=== PATIENT | female | born 1965 | race Caucasian/White ===

== ENCOUNTER 2020-03-07 17:40 | Emergency (ER) | payer BC, MEDICAID ==
[~2020-03-07] VITALS: Ht 156 cm; Wt 182.0 kg
--- OUTSIDE RECORDS SUMMARY | 2020-03-07 17:44 | XMS REPORT | Continuity of Care Document ---
Author Organization Unknown Address Unknown Phone Unavailable Allergies There is no data. Medications There is no data. Problems There is no data. Procedures There is no data. Results There is no data. Encounters ACCT No. Visit Date/Time Discharge Status Pt. Type Provider Facility Loc./Unit Complaint [id number] 04/07/2014 14:48:00 014 23:59:59 CLS Outpatient
[2020-03-07] MEDS ORDERED: ADENOSINE 6 MG/2 ML (ADENOCARD) VIAL IV ONE ×4 (17:57→19:15)
--- NOTE | 2020-03-07 18:15 | ED Cardiac General ---
History of Present Illness General Chief Complaint: Cardiac/General Problems Stated Complaint: RAPID HEARTBEAT Source: patient Exam Limitations: no limitations History of Present Illness Date Seen by Provider: March 07, 2020 Time Seen by Provider: 17:57 Initial Comments Patient presents ER by private conveyance with chief complaint about 30 minutes prior to arrival she was at [employer] helping her and the truck and she felt her heart start racing. She started doing vagal maneuvers. She has a known history of Jelly Parkinson White. She denies a history of atrial fibrillation but she is on warfarin, sotalol. She's not having any chest pain or shortness of air. She says in the past she's had taken 6 or 12 mg of Adenocard to get it to go away. Allergies and Home Medications Allergies Coded Allergies: prochlorperazine (Verified Allergy, Unknown, 03/07/20) Patient Home Medication List Home Medication List Reviewed: Yes Review of Systems Review of Systems Constitutional: No chills, No diaphoresis EENTM: No Blurred Vision, No Double Vision Respiratory: Denies Cough, Denies Orthopnea Cardiovascular: See HPI; Denies Chest Pain, Denies Edema, Denies Irregular Heart Rate, Denies Lightheadedness; Palpitations; Denies Syncope Gastrointestinal: Denies Abdomen Distended, Denies Abdominal Pain, Denies Constipated, Denies Diarrhea Genitourinary: Denies Burning, Denies Discharge Musculoskeletal: No back pain, No joint pain Skin: No pruritus, No rash Psychiatric/Neurological: Denies Headache, Denies Numbness All Other Systems Reviewed Negative Unless Noted: Yes Past Uphtlxw-Kbqhjx-Dzqtbk Hx Patient Social History Alcohol Use: Denies Use Recreational Drug Use: No 2nd Hand Smoke Exposure: No Recent Foreign Travel: No Contact w/Someone Who Travel: No Past Medical History Respiratory: No Cardiac: Yes (WPW) Hypertension Genitourinary: No Gastrointestinal: No Musculoskeletal: No Endocrine: No HEENT: No Cancer: No Psychosocial: No Integumentary: No Physical Exam Vital Signs Vital Signs - First Documented 03/07/20 03/07/20 18:00 18:01 Temp 36.6 Pulse 141 Resp 15 B/P (MAP) 118/78 (91) Pulse Ox 96 O2 Delivery Room Air Capillary Refill : Height, Weight, BMI Height: '" Weight: lbs. oz. kg; BMI Method: General Appearance: No Apparent Distress, WD/WN HEENT: PERRL/EOMI, Pharynx Normal, Moist Mucous Membranes Neck: Full Range of Motion, Normal Inspection Respiratory: Lungs Clear, Normal Breath Sounds, No Accessory Muscle Use, No Respiratory Distress Cardiovascular: Regular Rate, Rhythm, No Edema, Normal Peripheral Pulses Gastrointestinal: Normal Bowel Sounds, No Organomegaly, Non Tender, Soft Extremity: Normal Capillary Refill, Normal Inspection, Normal Range of Motion Neurologic/Psychiatric: Alert, Oriented x3, No Motor/Sensory Deficits, Normal Mood/Affect Skin: Normal Color, Warm/Dry Procedures/Interventions Additional Procedures: cardioversion/defib Progress 1804: With EKG monitoring in place 12 leads we push 6 mg and flushed rapidly adenocard. Patient had no electrical effect. Patient verbalized that she could feel the Adenocard. 1807: 12 mg of Adenocard was pushed with a rapid flush which achieved about a 1- 2 second pause followed by prompt resumption of wide-complex, regular tachycardia. 1817: A third dose of Adenocard 12 mg was pushed with no visible effect on the monitor. Patient said she could feel the symptoms. Progress/Results/Core Measures Results/Orders Lab Results Laboratory Tests Test 03/07/20 18:18 Range/Units White Blood Count 5.8 4.3-11.0 10^3/uL Red Blood Count 4.67 4.35-5.85 10^6/uL Hemoglobin 13.5 11.5-16.0 G/DL Hematocrit 40 35-52 % Mean Corpuscular Volume 85 80-99 FL Mean Corpuscular Hemoglobin 29 25-34 PG Mean Corpuscular Hemoglobin Concent 34 32-36 G/DL Red Cell Distribution Width 14.9 H 10.0-14.5 % Platelet Count 123 L 130-400 10^3/uL Mean Platelet Volume 9.9 7.4-10.4 FL Neutrophils (%) (Auto) 47 42-75 % Lymphocytes (%) (Auto) 30 12-44 % Monocytes (%) (Auto) 16 H 0-12 % Eosinophils (%) (Auto) 3 0-10 % Basophils (%) (Auto) 4 0-10 % Neutrophils # (Auto) 2.7 1.8-7.8 X 10^3 Lymphocytes # (Auto) 1.7 1.0-4.0 X 10^3 Monocytes # (Auto) 0.9 0.0-1.0 X 10^3 Eosinophils # (Auto) 0.2 0.0-0.3 10^3/uL Basophils # (Auto) 0.3 H 0.0-0.1 10^3/uL Prothrombin Time 17.4 H 12.2-14.7 SEC INR Comment 1.4 0.8-1.4 Activated Partial Thromboplast Time 33 24-35 SEC Sodium Level 138 135-145 MMOL/L Potassium Level 4.1 3.6-5.0 MMOL/L Chloride Level 108 H 98-107 MMOL/L Carbon Dioxide Level 19 L 21-32 MMOL/L Anion Gap 11 5-14 MMOL/L Blood Urea Nitrogen 9 7-18 MG/DL Creatinine 0.70 0.60-1.30 MG/DL Estimat Glomerular Filtration Rate > 60 BUN/Creatinine Ratio 13 Glucose Level 134 H 70-105 MG/DL Calcium Level 9.0 8.5-10.1 MG/DL Corrected Calcium 9.0 8.5-10.1 MG/DL Magnesium Level 1.9 1.6-2.4 MG/DL Total Bilirubin 1.1 H 0.1-1.0 MG/DL Aspartate Amino Transf (AST/SGOT) 23 5-34 U/L Alanine Aminotransferase (ALT/SGPT) 13 0-55 U/L Alkaline Phosphatase 101 40-136 U/L Myoglobin 20.4 10.0-92.0 NG/ML Troponin I < 0.028 <0.028 NG/ML B-Type Natriuretic Peptide 200.2 H <100.0 PG/ML Total Protein 7.2 6.4-8.2 GM/DL Albumin 4.0 3.2-4.5 GM/DL My Orders Orders - MATTHIAS LEE Adenosine Injection (Adenocard Injection (03/07/20 18:15) Adenosine Injection (Adenocard Injection (03/07/20 18:15) Adenosine Injection (Adenocard Injection (03/07/20 17:57) Ed Iv/Invasive Line Start (03/07/20 18:47) Ns Iv 1000 Ml (Sodium Chloride 0.9%) (03/07/20 18:47) Enoxaparin Injection (Lovenox Injection) (03/07/20 19:00) Lorazepam Injection (Ativan Injection) (03/07/20 19:00) Lorazepam Injection (Ativan Injection) (03/07/20 18:44) Adenosine Injection (Adenocard Injection (03/07/20 19:15) Enoxaparin Injection (Lovenox Injection) (03/07/20 19:15) Medications Given in ED Current Medications Medications Dose Ordered Sig/Mamta Route Start Time Stop Time Status Last Admin Dose Admin Adenosine 6 mg ONCE ONCE IV 03/07/20 18:15 03/07/20 18:16 DC 03/07/20 18:09 6 MG Adenosine 6 mg STK-MED ONCE IV 03/07/20 17:57 03/07/20 18:06 DC 03/07/20 18:12 6 MG Adenosine 12 mg ONCE ONCE IV 03/07/20 18:15 03/07/20 18:16 DC 03/07/20 18:20 12 MG Enoxaparin Sodium 30 mg ONCE ONCE SC 03/07/20 19:15 03/07/20 19:16 DC 03/07/20 19:13 30 MG Enoxaparin Sodium 120 mg ONCE ONCE SC 03/07/20 19:00 03/07/20 19:01 DC 03/07/20 18:58 120 MG Lorazepam 1 mg ONCE ONCE IVP 03/07/20 19:00 03/07/20 19:01 DC 03/07/20 18:57 1 MG Vital Signs/I&O 03/07/20 03/07/20 18:00 18:01 Temp 36.6 Pulse 141 Resp 15 B/P (MAP) 118/78 (91) Pulse Ox 96 97 O2 Delivery Room Air Progress Progress Note #1: Time: 18:22 Progress Note After Adenocard was unsuccessful the patient requested to be 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 Progress Note #2: Time: 18:36 Progress Note [facility] is on diversion. We are offering to keep her here versus transferring her to [facility] and she would prefer to go to [facility] at this time. Progress Note #3: Time: 18:54 Progress Note Patient did have a 6 beat run of V. tach, monitor. Her INR is 1.4 and a creatinine 0.7 so we covered her with 150 mg of subcutaneous Lovenox. We discussed with her the risks of cardioversion at this time and that she would need to be done under JULIANNA guidance. We did discuss the case again with Dr. Jackson and he agrees with plan and would not recommend any medications such as amiodarone etc. as we do not want to try and cardiovert her electively without JULIANNA. Progress Note #4: Time: 19:30 Progress Note Updated the patient. She is much more calm after a 1 mg dose of IV Ativan. No further beats of V. tach seen. Initial ECG Impression Date: March 07, 2020 Initial ECG Impression Time: 17:55 Initial ECG Rate: 140 Initial ECG Rhythm: S.Tach Initial ECG Intervals: QT (597) Initial ECG Impression: Nonspecific Changes Initial ECG Comparisson: No Previous ECG Available Comment Wide complex rapid, regular monomorphic tachycardia. History of Dibcw-Zmcyzclox-Zvciu per patient EKG #1: EKG Time: 18:05 Rate: 140 ECG Comparisson: Unchanged Comment Wide-complex regular monomorphic tachycardia with administration of 6 mg of Adenocard followed by 12 mg Adenocard. No change until the menstruation 12 mg. There is a 1 second pause followed by immediate resumption of same wide-complex, regular, monomorphic tachycardia. EKG #2: EKG Time: 18:15 Rate: 140 ECG Comparisson: Unchanged Comment Wide complex monomorphic regular tachycardia. Second dose of 12 mg of Adenocard was administered but the printer ran out of paper and nothing was recorded on paper. However nothing on the monitor demonstrated changes other than she went from 140 down to about 132 bpm. EKG #3: EKG Time: 18:40 Rate: 200 Rhythm: V.Tach ECG Comparisson: Changed Comment Patient had a 6 second run of ventricular tachycardia before resuming the previous tachycardia with wide monomorphic regular appearance. Diagnostic Imaging Diagonstic Imaging: Xray Plain Films/CT/US/NM/MRI: chest (1v) Comments NAME: [facility] REC#: [id number] PT STATUS: REG ER : 1965 PHYSICIAN: ADA PAZ APRN ADMIT DATE: 03/07/20/ER Draft Date of Exam:03/07/20 CHEST 1 VIEW, AP/PA ONLY INDICATION: Tachycardia Portable chest 6:52 PM Heart size and pulmonary vascularity are normal. Lungs are clear. There are no effusions or pneumothoraces. There are postoperative changes from a median sternotomy. IMPRESSION: No acute abnormalities in the chest Dictated on workstation # [id number] Dict: 03/07/201906 Trans: 03/07/201909 FREDRICK [id number] Interpreted by: MAURO GARCÍA MD Electronically signed by: Reviewed: Reviewed by Me Consults : Consulting Physician: CECILIO JACKSON MD Consults Notes 180: Discussed the case and EKG and he agrees with Adenocard. 181: Discussed the inability to control her with 03/18/12 and he recommends a second dose of 12 since she did have a pause. 182: Discussed case with Dr. 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 She is stable right now with a good blood pressure. Plan to give her some IV fluids and put her on transport as that is what the patient wants. We'll put paddles on her. Departure Impression Primary Impression: Persistent atrial fibrillation with RVR Disposition: XF [facility] Condition: Stable Transfer Transfer Reason: Patient preference Time Spoke to Accepting Phy: 18:38 Transfer Progress Notes 1835: Called [facility] and They are paging Dr Sharma. 1838: Dr. Sharma, cardiology except the patient to the ICU for cardio version on arrival. Transfer Time: 19:45 Transfer Facility: [place], [place] Method of Transfer: EMS Departure-Patient Inst. Referrals: NO,LOCAL PHYSICIAN (PCP/Family) Primary Care Physician MATTHIAS LEE March 07, 2020 18:15
[2020-03-07 18:26] LABS: BASOPHILS # (AUTO) 0.3 10^3/uL (0.0-0.1); BASOPHILS % (AUTO) 4 % (0-10); EOSINOPHILS # (AUTO) 0.2 10^3/uL (0.0-0.3); EOSINOPHILS % (AUTO) 3 % (0-10); HEMATOCRIT 40 % (35-52); HEMOGLOBIN 13.5 G/DL (11.5-16.0); LYMPHOCYTES # (AUTO) 1.7 X 10^3 (1.0-4.0); LYMPHOCYTES % (AUTO) 30 % (12-44); MEAN CORPUSCULAR HEMOGLOBIN 29 PG (25-34); MEAN CORPUSCULAR HGB CONC 34 G/DL (32-36); MEAN CORPUSCULAR VOLUME 85 FL (80-99); MEAN PLATELET VOLUME 9.9 FL (7.4-10.4); MONOCYTES # (AUTO) 0.9 X 10^3 (0.0-1.0); MONOCYTES % (AUTO) 16 % (0-12); NEUTROPHILS # (AUTO) 2.7 X 10^3 (1.8-7.8); NEUTROPHILS % (AUTO) 47 % (42-75); PLATELET COUNT 123 10^3/uL (130-400); RED CELL DISTRIBUTION WIDTH 14.9 % (10.0-14.5); WHITE BLOOD COUNT 5.8 10^3/uL (4.3-11.0)
[2020-03-07 18:36] LABS: CHLORIDE 108 MMOL/L (98-107); POTASSIUM 4.1 MMOL/L (3.6-5.0); SODIUM 138 MMOL/L (135-145)
[2020-03-07 18:38] LABS: GLUCOSE 134 MG/DL (70-105)
[2020-03-07 18:39] LABS: TOTAL PROTEIN 7.2 GM/DL (6.4-8.2)
[2020-03-07 18:40] LABS: BILIRUBIN,TOTAL 1.1 MG/DL (0.1-1.0); CARBON DIOXIDE 19 MMOL/L (21-32); INR 1.4 (0.8-1.4); PROTHROMBIN TIME PATIENT 17.4 SEC (12.2-14.7)
[2020-03-07 18:42] LABS: ALKALINE PHOSPHATASE 101 U/L (40-136); GFR ESTIMATED > 60
[2020-03-07 18:43] LABS: BUN/CREATININE RATIO 13
[2020-03-07] MEDS ORDERED: LORazepam INJ 2 MG/ML (ATIVAN) VIAL ONE (18:44)
[2020-03-07 18:45] LABS: ALANINE AMINOTRANSFERASE 13 U/L (0-55); MAGNESIUM 1.9 MG/DL (1.6-2.4)
[2020-03-07] MEDS ORDERED: NS IV 1000 ML 1,000 ML IV SCH (18:47)
[2020-03-07] MEDS ORDERED: LORazepam INJ 2 MG/ML (ATIVAN) VIAL IVP ONE (19:00)
[2020-03-07] MEDS ORDERED: ENOXAPARIN 60 MG/0.6 ML (LOVENOX) SYR SC ONE ×2 (19:00)
--- NOTE | 2020-03-07 19:10 | Diagnostic Imaging Report ---
INDICATION: Tachycardia Portable chest 6:52 PM Heart size and pulmonary vascularity are normal. Lungs are clear. There are no effusions or pneumothoraces. There are postoperative changes from a median sternotomy. IMPRESSION: No acute abnormalities in the chest Dictated by: Dictated on workstation # [id number]
[2020-03-07] MEDS ORDERED: ENOXAPARIN 30 MG/0.3 ML (LOVENOX) SYR SC ONE (19:15)
[2020-03-07 19:40] VITALS: BP 134/106
== END 2020-03-07 19:48 | disposition short-term general hospital (02) ==
LOC: EDUNIT# 17:40 → ER 17:41
DX: I48.19 Other persistent atrial fibrillation (principal); Z88.8 Allergy status to other drugs, medicaments and biological substances; Z79.01 Long term (current) use of anticoagulants
CPT/HCPCS: 36415; 71045; 80053; 83735; 83874; 83880; 84484; 85025; 85610; 85730; 93005; 93041; 96372; 96374; 96375